=== PATIENT | male | born 1955 | race Caucasian/White ===

== ENCOUNTER 2020-09-29 11:30 | Day surgery (SDC) | payer MEDICARE, OTHER ==
[~2020-09-29 11:30] MED LIST: Metoclopramide 10 MG/2 ML SDV IV PRN; Sodium Chloride 0.9% 1,000 ML IV SCH
[2020-09-29] MEDS ORDERED: Propofol 1,000 MG/100 ML SDV ONE (13:30)
--- NOTE | 2020-09-29 14:32 | OR ---
DATE OF OPERATION: 09/29/2020 SURGEON: Romie Mancilla MD PREOPERATIVE DIAGNOSIS: Screening colonoscopy. POSTOPERATIVE DIAGNOSIS: Screening colonoscopy. PROCEDURE: Screening colonoscopy. ANESTHESIA: MAC. ESTIMATED BLOOD LOSS: None. COMPLICATIONS: None. INDICATION FOR THE PROCEDURE: The patient is a 65-year-old male who apparently had a colonoscopy 7 years ago. He is here today for a routine followup. Denies any change in bowel habits since that time. DESCRIPTION OF THE PROCEDURE: Informed consent was obtained from the patient. The patient was taken to the operating room and placed on the table in left lateral decubitus position. Monitored anesthesia care was administered. Digital rectal exam was performed and was normal. Colonoscope was then advanced through the anus and directed toward the cecum. Cecum was reached and identified by appendiceal orifice and ileocecal valve. Colonoscope was then slowly withdrawn. No masses. No polyps. No areas of ischemia or inflammation identified. Rectum was also otherwise unremarkable as well. The colonoscope was then withdrawn. FINDINGS: Normal colonoscopy. RECOMMENDATIONS: Would recommend repeat screening colonoscopy in 10 years. SHARAD/GERMAN /[id number]
== END 2020-09-29 14:27 | disposition home or self-care (01) ==
LOC: LB.SDS 11:30
PROVIDERS: ATTEND Surgery
DX: Z12.11 Encounter for screening for malignant neoplasm of colon (principal); I10 Essential (primary) hypertension; J45.909 Unspecified asthma, uncomplicated; Z79.82 Long term (current) use of aspirin
CPT/HCPCS: J2704; J7030